=== PATIENT | male | born 1960 | race Hispanic/Latino ===

== ENCOUNTER 2018-07-08 15:34 | Emergency (ER) | payer SELFPAY ==
--- NOTE | 2018-07-08 17:19 | XRay Report ---
FINAL REPORT EXAM: XR CHEST ROUTINE 2V HISTORY: Shortness of breath TECHNIQUE: PA and lateral views of the chest PRIORS: None. FINDINGS: Lines, tubes, and devices: N/A Lungs and pleura: Trachea is normal in position. Hyperinflation with flattened hemidiaphragms is noted. There is minimal linear atelectasis in the lingula. Lungs are otherwise clear of consolidation, pleural effusion, vascular congestion, or pneumothorax. Cardiomediastinal silhouette: Cardiac and mediastinal silhouettes are unremarkable. Other: Bony structures are intact. IMPRESSION: Mild atelectasis in the lingula.. Hyperinflation.
[2018-07-08 17:49] LABS: Hematocrit 46.4 % (35.5-45.6); Hemoglobin 15.4 gm/dl (11.8-15.2); Mean Corpuscular HGB Conc 33 % (32-34); Mean Corpuscular Hemoglobin 32 pg (28-32); Mean Corpuscular Volume 95 fl (84-94); Platelet Count 370 K/mm3 (140-440); Red Blood Count 4.89 M/mm3 (3.65-5.03); Red Cell Distribution Width 13.5 % (13.2-15.2)
[2018-07-08 18:16] LABS: BUN/Creatinine Ratio 19; Blood Urea Nitrogen 19 mg/dL (9-20); Calcium 9.4 mg/dL (8.4-10.2); Hemolysis Index 12
[2018-07-08 18:33] LABS: Basophils % (Manual) 0 % (0.0-1.8); RBC Morphology Normal; Total Cells Counted 100
[2018-07-09] MEDS ORDERED: DUONEB *Not for PRN Use IH ONE (00:53)
[2018-07-09] MEDS ORDERED: MAGNESIUM SULFATE 2GM/50ML 2 GM/50 ML BAG IV ONE (01:27)
[2018-07-09] MEDS ORDERED: SOLU-Medrol IV ONE (01:27)
[2018-07-09] MEDS ORDERED: PROVENTIL IH ONE (01:29)
[2018-07-09] MEDS ORDERED: ATROVENT IH ONE (01:29)
--- NOTE | 2018-07-09 01:34 | Emergency Department Report ---
Blank Doc - Documentation Documentation: I Briefly evaluated patient. Patient completed a Duoneb and continues to have wheezing. No signs of respiratory distress. Additional albuterol 7.5 and Atrovent 0.5 mg ordered conditions IV Solu-Medrol and magnesium. Patient requesting antibiotics because he feels he has been exposed to infection at treatment program he is in. Pt recently completed course of abx and steriods. He states was able to get his meds filled including a neb machine. CXR shows hyperinflation. Patient to be further evaluated by overnight physician
[2018-07-09] MEDS ORDERED: XOPENEX IH ONE (03:01)
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
[2018-07-09 04:02] VITALS: BP 110/72
== END 2018-07-09 04:50 | disposition home or self-care (01) ==
LOC: ED 15:34
DX: J44.1 Chronic obstructive pulmonary disease with (acute) exacerbation (principal); J40 Bronchitis, not specified as acute or chronic; F17.200 Nicotine dependence, unspecified, uncomplicated
CPT/HCPCS: 36415; 71046; 80048; 84484; 85007; 85025; 93005; 93010; 94640; 96365; 96375; 99284; J2930; J3475

== ENCOUNTER 2018-08-01 15:08 | Emergency (ER) | payer OTHER ==
[2018-08-01 15:52] LABS: Basophils # (Auto) 0.1 K/mm3 (0.0-0.1); Basophils % (Auto) 1.2 % (0.0-1.8); Eosinophils # (Auto) 0.5 K/mm3 (0.0-0.4); Eosinophils % (Auto) 5.5 % (0.0-4.3); Hematocrit 45.2 % (35.5-45.6); Hemoglobin 15.4 gm/dl (11.8-15.2); Lymphocytes # (Auto) 3.3 K/mm3 (1.2-5.4); Lymphocytes % (Auto) 32.4 % (13.4-35.0); Mean Corpuscular HGB Conc 34 % (32-34); Mean Corpuscular Hemoglobin 32 pg (28-32); Mean Corpuscular Volume 93 fl (84-94); Monocytes # (Auto) 1.2 K/mm3 (0.0-0.8); Monocytes % (Auto) 11.9 % (0.0-7.3); Platelet Count 375 K/mm3 (140-440); Red Blood Count 4.84 M/mm3 (3.65-5.03); Red Cell Distribution Width 13.2 % (13.2-15.2)
[2018-08-01 16:18] LABS: BUN/Creatinine Ratio 8; Blood Urea Nitrogen 7 mg/dL (9-20); Calcium 9.1 mg/dL (8.4-10.2); Hemolysis Index 2
--- NOTE | 2018-08-01 16:49 | XRay Report ---
FINAL REPORT PROCEDURE: XR CHEST ROUTINE 2V TECHNIQUE: PA and lateral view of the chest was obtained. HISTORY: Shortness of breath COMPARISON: Prior chest x-ray 07/08/2018 FINDINGS: Heart size and pulmonary vasculature appear normal. No evidence of pulmonary edema or pleural effusion. No focal infiltrates or masses are seen lungs are hyperinflated consistent with underlying COPD. No acute bony abnormalities are identified. IMPRESSION: Hyperinflation suggests underlying COPD. No acute abnormalities are identified.
[2018-08-01] MEDS ORDERED: PROVENTIL IH ONE (17:22)
[2018-08-01] MEDS ORDERED: ATROVENT IH ONE (17:22)
[2018-08-01] MEDS ORDERED: SOLU-Medrol IV ONE (17:22)
[2018-08-01] MEDS ORDERED: MAGNESIUM SULFATE 1 GM in NACL 0.9% 50 ML IV ONE (17:22)
--- NOTE | 2018-08-01 17:25 | Emergency Department Report ---
Blank Doc - Documentation Documentation: Patient is a 57-year-old male with COPD who has had a cough congestion for the last several days who is now presenting with some chest tightness and discomfort with cough. Patient's states the pain is right greater than left. Patient was sent here for evaluation. Patient to take his nebulizer machine at home as prescribed. On focused physical exam patient is diffused wheeze with decreased breath sounds. Very mild tachycardia. Patient will receive a hour-long neb treatment as well as Solu-Medrol and magnesium patient be reassessed.
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
[2018-08-01 20:16] VITALS: BP 116/88
== END 2018-08-01 20:16 | disposition home or self-care (01) ==
LOC: ED 15:08
DX: J44.1 Chronic obstructive pulmonary disease with (acute) exacerbation (principal); Z87.891 Personal history of nicotine dependence
CPT/HCPCS: 36415; 71046; 80048; 84484; 85025; 93005; 93010; 94640; 96365; 96375; 99284; J2930; J3475